=== PATIENT | female | born 1955 | race American Indian/Alaskan Native ===

== ENCOUNTER 2016-07-03 14:09 | Emergency (ER) | payer MEDICAID ==
[~2016-07-03] VITALS: Ht 152.4 cm; Wt 79.4 kg
[2016-07-03 14:19] VITALS: BP 120/90
== END 2016-07-03 15:55 | disposition home or self-care (01) ==
LOC: ER 14:09
DX: S82.62XA Displaced fracture of lateral malleolus of left fibula, initial encounter for closed fracture (principal); W01.0XXA Fall on same level from slipping, tripping and stumbling without subsequent striking against object, initial encounter; Y93.89 Activity, other specified; Y99.8 Other external cause status; Y92.89 Other specified places as the place of occurrence of the external cause
CPT/HCPCS: 29515; 73610

== ENCOUNTER 2016-07-10 02:35 | Emergency (ER) | payer MEDICAID ==
[~2016-07-10] VITALS: Ht 175.3 cm; Wt 81.6 kg
[2016-07-10 03:04] LABS: Basophils # (auto) 0 uL; Basophils % (auto) 0.3 % (0.0-2.0); Eosinophils # (auto) 0 uL; Eosinophils % (auto) 0.4 % (0.0-7.0); Hematocrit 41.5 % (36.0-46.0); Hemoglobin 13.6 g/dL (12.2-16.2); Lymphocytes # (auto) 0.8 uL; Mean Corpuscular Hgb Conc. 32.7 g/dL (32.0-36.0); Mean Corpuscular Volume 88.7 fL (80.0-100.0); Mean Platelet Volume 9.2 fL (7.4-10.4); Monocytes # (auto) 0.4 uL; Monocytes % (auto) 7.7 % (0.0-12.0); Neutrophils % (auto) 76.6 % (37.0-80.0); Platelet Count (auto) 233 10^3/uL (140-450); Red Cell Distribution Width 15.3 % (11.6-16.0); White Blood Cell 5.2 10^3/uL (4.4-10.8)
[2016-07-10 03:21] LABS: Albumin 3.2 g/dL (3.4-5.0); Anion Gap 10 (5-15); Aspartate Aminotransferase 33 U/L (15-37); BUN/Creatinine Ratio 11.2; Blood Urea Nitrogen 11 mg/dL (7-18); Calcium 9.4 mg/dL (8.5-10.1); Carbon Dioxide 21 mmol/L (21-32); Chloride 107 mmol/L (98-107); GFR African American 74 mL/min; GFR Non-African American 61 mL/min; Glucose 119 mg/dL (74-106); Potassium 4.7 mmol/L (3.5-5.1); Sodium 138 mmol/L (136-145)
[2016-07-10 03:26] LABS: Alkaline Phosphatase 126 U/L (45-117); Bilirubin, Total 0.4 mg/dL (0.2-1.0); Total Protein 7.4 g/dL (6.4-8.2)
[2016-07-10 04:15] VITALS: BP 132/76
[2016-07-10] MEDS ORDERED: KETOROLAC TROMETH 60MG/2ML VIAL IM ONE (04:15)
[2016-07-10] MEDS ORDERED: ACETAMINOPHEN 325 MG TAB PO ONE (04:15)
[2016-07-10 04:53] LABS: Urine Bilirubin Negative (Negative); Urine Blood Negative /uL (Negative); Urine Color Yellow (Yellow); Urine Glucose Normal (Normal); Urine Ketone Negative (Negative); Urine Mucus FEW (None Seen); Urine Nitrite Negative (Negative); Urine RBC 1 /hpf (0 - 4); Urine Squamous Epithelial Cell MOD /hpf (<5); Urine pH 6.5 (5.0-8.0)
== END 2016-07-10 05:59 | disposition home or self-care (01) ==
LOC: ER 02:36
DX: M79.605 Pain in left leg (principal); M79.604 Pain in right leg; M54.9 Dorsalgia, unspecified; M79.1 Myalgia; F17.210 Nicotine dependence, cigarettes, uncomplicated; Z88.1 Allergy status to other antibiotic agents; Z88.0 Allergy status to penicillin
CPT/HCPCS: 36415; 71020; 80053; 80307; 81001; 84484; 85025; 93005; 96372; 99285; J1885